=== PATIENT | male | born 1970 | race Caucasian/White ===

== ENCOUNTER 2022-06-27 11:33 | Emergency (ER) | payer OTHER ==
--- OUTSIDE RECORDS SUMMARY | 2022-06-27 11:36 | XMS REPORT | Continuity of Care Document ---
:1970 Author Organization [facility] t Address [address] [place] [address] Care Team Providers Name Role Phone PCP, PATIENT DOES NOT HAVE A Primary Care Physician Unavaila ble Nurse, [facility] Attending Clinician Unavailable Unknown, Attending Attending Clinician Unavailable TAMIKA THURSTON Attending Clinician Unavailable Doctor Unassigned, [place] Attending Clinician Unavailable Nurse, Brendon Pob Immunization Attending Clinician Unavailable Brandon Mckoy DO Attending Clinician BRANDON MCKOY Attending Clinician Unavailable Eugene Colbert MD Attending Clinician DEDE CASTAÑEDA Attending Clinician Unavailable JESSICA FRIAS Attending Clinician Unavailable JESSICA FRIAS Admitting Clinician Unavailable Payers Payer Name Policy Type Policy Number Effective Date Expiration Date Fernando vivar [employer]ET[employer] PPO I [id number] 2017 00:00:00 Problems Condition Condition Condition Status Onset Resolution Last Treating Co mments Source Name Details Category Date Date Treatment Clinician Date No known No known Disease Unive rs active active ity of problems problems [facility] Allergies, Adverse Reactions, Alerts Allergy Allergy Status Severity Reaction(s) Onset Inactive Treating Comm ents Source Name Type Date Date Clinician Penicill Propensi Active Anaphylaxis 2007-0 U nivers ins ty to 10-15 ity of adverse 00:00: [place] reaction 00 Medical s Branch Penicill Propensi Active Anaphylaxis U nivers ins ty to 10-15 ity of adverse 00:00: [place] reaction Medical s [place] PENICILL Drug Active Anaphylaxis 2007- Uni vers INS Class 10-15 ity of 00:00: [place] 00 Medical Branch Social History Social Habit Start Date Stop Date Quantity Comments Source History SDNV University o f Alcohol Frequency [place] M edical Branch History [facility] University o f Alcohol Std [place] Medical Drinks Branch History [facility] o f Alcohol Binge [place] Medic al Branch History of Current smoker University of tobacco use [facility] Alcohol intake 2019-05-13 2019-05-13 0 /d University of 00:00:00 00:00:00 [facility] Alcohol Comment 2019-04-16 2019-04-16 10/week (wine and Un iversity of 00:00:00 00:00:00 liquor) [facility] Tobacco use and 2016-03-29 2016-03-29 Smokeless tobacco Un iversity of exposure 00:00:00 00:00:00 non-user [facility] Sex Ass[birth year] At [birth year] Universit y of 00:00:00 00:00:00 [facility] Smoking Status Start Date Stop Date Source Ex-smoker 2016-03-29 00:00:00 2016-03-29 00:00:00 [facility] Medications Ordered Filled Start Stop Current Ordering Indication Dosage Frequency Signature Comments Components Source Medication Medication Date Date Medication? Clinician (SIG) Name Name diclofenac 2018-05 Yes 50mg Take 1 Unive rs 50 mg EC 2-19 tablet by ity of tablet 00:00: mouth 3 ([facility]) Medical times Branch daily with meals. diclofenac 2018-05 Yes 50mg Take 1 Unive rs 50 mg EC 2-19 tablet by ity of tablet 00:00: mouth (three) Medical times Branch daily with meals. diclofenac 2018-05 Yes 50mg Take 1 Unive rs 50 mg EC 2-19 tablet by ity of tablet 00:00: mouth 3 [place] (three) Medical times Branch daily with meals. diclofenac 2018-05 Yes 50mg Take 1 Unive rs 50 mg EC 2-19 tablet by ity of tablet 00:00: mouth 3 [place] (three) Medical times Branch daily with meals. ibuprofen 2018-05 Yes 600mg Take 600 Uni vers 200 mg 2-04 mg by ity of tablet 14:03: mouth [place] 39 every 6 Medical (six) Branch hours as needed. ibuprofen 2018-05 Yes 600mg Take 600 Uni vers 200 mg 2-04 mg by ity of tablet 14:03: mouth [place] 39 every 6 Medical (six) Branch hours as needed. ibuprofen 2018-05 Yes 600mg Take 600 Uni vers 200 mg 2-04 mg by ity of tablet 14:03: mouth [place] 39 every 6 Medical (six) Branch hours as needed. ibuprofen 2018-05 Yes 600mg Take 600 Uni vers 200 mg 2-04 mg by ity of tablet 14:03: mouth [place] 39 every 6 Medical (six) Branch hours as needed. fluticasone 2018-05 Yes [id number] 2{spray Use 2 Univers propionate 0-03 } Sprays in ity of 50 00:00: each [place] mcg/actuati 00 nostril Medic al on nasal daily. Branch spray fluticasone 2018-05 Yes [id number] 2{spray Use 2 Univers propionate 0-03 } Sprays in ity of 50 00:00: each [place] mcg/actuati 00 nostril Medic al on nasal daily. Branch spray fluticasone 2018-05 Yes [id number] 2{spray Use 2 Univers propionate 0-03 } Sprays in ity of 50 00:00: each [place] mcg/actuati 00 nostril Medic al on nasal daily. Branch spray fluticasone 2018-05 Yes [id number] 2{spray Use 2 Univers propionate 0-03 } Sprays in ity of 50 00:00: each [place] mcg/actuati 00 nostril Medic al on nasal daily. Branch spray Immunizations Ordered Filled Immunization Date Status Comments [facility] e Immunization Name Name SARS-COV-2 COVID-19 2021-05-19 Completed Unive rsity of MODERNA BOOSTER 00:00:00 [place] Med ical VACCINE Branch SARS-COV-2 COVID-19 2021-05-19 Completed Unive rsity of MODERNA 0.25ML 00:00:00 [place] Medi tamiko BOOSTER VACCINE Branch SARS-COV-2 COVID-19 2021-05-19 Completed Unive rsity of MODERNA 0.25ML 00:00:00 [place] Medi tamiko BOOSTER VACCINE Branch SARS-COV-2 COVID-19 2020-07-17 Completed Unive rsity of MODERNA VACCINE 00:00:00 [facility] ical Branch SARS-COV-2 COVID-19 2020-07-17 Completed Unive rsity of MODERNA VACCINE 00:00:00 [facility] ical Branch SARS-COV-2 COVID-19 2020-07-17 Completed Unive rsity of MODERNA 12+ YRS 00:00:00 [facility] VACCINE Branch SARS-COV-2 COVID-19 2020-07-17 Completed Unive rsity of MODERNA 12+ YRS 00:00:00 [facility] VACCINE Branch SARS-COV-2 COVID-19 2020-06-20 Completed Unive rsity of MODERNA VACCINE 00:00:00 [facility] Branch SARS-COV-2 COVID-19 2020-06-20 Completed Unive rsity of MODERNA VACCINE 00:00:00 [facility] Branch SARS-COV-2 COVID-19 2020-06-20 Completed Unive rsity of MODERNA 12+ YRS 00:00:00 [facility] VACCINE Branch SARS-COV-2 COVID-19 2020-06-20 Completed Unive rsity of MODERNA 12+ YRS 00:00:00 [facility] VACCINE Branch Influenza Virus 2019-04-16 Completed Universit y of Vaccine Quad .5 mL 00:00:00 [facility] IM 6+ MO Branch Influenza Virus 2019-04-16 Completed Universit y of Vaccine Quad .5 mL 00:00:00 [facility] IM 6+ MO Branch Influenza Virus 2019-04-16 Completed Universit y of Vaccine Quad .5 mL 00:00:00 [facility] 6+ MO Branch Influenza Virus 2019-04-16 Completed Universit y of Vaccine Quad .5 mL 00:00:00 [facility] 6+ MO Branch TDAP 2019-02-13 Completed University of 00:00:00 [facility] TDAP 2019-02-13 Completed University of 00:00:00 [facility] TDAP 2019-02-13 Completed University of 00:00:00 [facility] TDAP 2019-02-13 Completed University of 00:00:00 [facility] Influenza Virus 2016-03-29 Completed Universit y of Vaccine Quad IM 3+ 00:00:00 [facility] Influenza Virus 2016-03-29 Completed Universit y of Vaccine Quad IM 3+ 00:00:00 [facility] Influenza Virus 2016-03-29 Completed Universit y of Vaccine Quad IM 3+ 00:00:00 [facility] Influenza Virus 2016-03-29 Completed Universit y of Vaccine Quad IM 3+ 00:00:00 [facility] Vital Signs Vital Name Observation Time Observation Value Comments Source Systolic blood 2022-06-27 17:20:00 133 mm[Hg] Univer sity of pressure [facility] Diastolic blood 2022-06-27 17:20:00 98 mm[Hg] Unive rsity of pressure [facility] Heart rate 2022-06-27 17:10:00 101 /min [facility] Body temperature 2022-06-27 17:10:00 37.33 [facility] Respiratory rate 2022-06-27 17:10:00 18 /min [facility] Body weight 2022-06-27 17:10:00 92.987 kg [facility] BMI 2022-06-27 17:10:00 29.41 kg/m2 [facility] Oxygen saturation in 2022-06-27 17:10:00 98 /min [facility] Arterial blood by [facility] Pulse oximetry Branch Procedures Procedure Date / Time Performed Performing Clinician [facility] e CONSENT/REFUSAL FOR 2022-06-27 17:06:03 Doctor Unassigned, No [facility] [place] DIAGNOSIS AND Name [facility] TREATMENT SARS-COV-2 COVID-19 2021-05-19 20:49:31 Doctor Unassigned, No [facility] [place] VACCINE Name [facility] BOOSTER,0.25ML,IM (MODERNA) Encounters Start End Encounter Admission Attending Care Care Encounter Source Date/Time Date/Time Type Type Clinicians Facility Department ID 2022-06-27 2022-06-27 [facility] [id number] Univers 11:15:00 11:35:00 Visit Unknown, Attending HEALTH [id number] [facility] [id number] Rob as TYESHA?BLEA [phone] Il dical [address] MEDICAL OFFICE BUILDING 2022-06-27 2022-06-27 Outpatient Jamey THURSTON [facility] [id number] Univers 11:15:00 11:15:[address] [facility] 2022-06-27 2022-06-27 Orders Doctor JESSICA [id number] Univers 00:00:00 00:00:00 Only Unassigned, MARCIANO [id number] ity of [place] [facility] [id number] Rob as [phone] [address] 2021-05-19 2021-05-19 Imm/Inj Nurse, Adc Pob Immunization [facility] [id number] Univers 14:50:00 14:50:00 Visit Brandon Mckoy [id number] [facility] [id number] [place] [phone] Me dical NAL [address] [facility] 2021-05-19 2021-05-19 Outpatient R ADDIE [facility] [id number] Univers 14:50:00 14:45:23 BRANDON [facility] 2021-04-14 2021-04-14 [facility] [id number] Univers 00:00:00 00:00:00 Eugene CANTU [id number] ity [facility] [id number] [place] [id number] [place] dical NAL [address] [facility] 2020-07-18 2020-07-[address] [facility] [id number] Univers [facility] 2020[facility] 2020-07-17 Outpatient Jamey CASTAÑEDA [facility] [id number] Univers 16:15:00 16:15:[address] [facility] 2020-06-20 2020-06-20 Outpatient Jamey CASTAÑEDA [facility] [id number] Univers 11:50:00 11:50:[address] [facility] 2019-04-28 2019-04-28 Outpatient Jamey FRIAS [facility] [id number] Univers 08:39:14 08:35:00 JESSICA [facility] Results This patient has no known results.
[2022-06-27] MEDS ORDERED: ONDANSETRON 4 MG/2 ML VIAL ONE (12:48)
[2022-06-27] MEDS ORDERED: ACETAMINOPHEN 500 MG TAB ONE (12:48)
[2022-06-27 12:52] LABS: Absolute Lymphocytes (CBC) 0.7 K/uL (0.7-4.9); Lymphocytes % 8.7 % (15.3-44.8); MCV 90.9 fL (80-100); MPV 8.5 fL (7.6-11.3); RBC Red Blood Cell Count 5.06 M/uL (4.33-5.43)
[2022-06-27 13:08] LABS: Albumin 3.9 g/dL (3.4-5.0); Bilirubin Total 0.4 mg/dL (0.2-1.0); Potassium 4.1 mmol/L (3.5-5.1); Protein, Total 7.3 g/dL (6.4-8.2)
[2022-06-27 13:18] LABS: Urine Blood Negative (Negative); Urine Glucose Negative (Negative); Urine Protein Negative (Negative); Urine Specific Gravity >=1.030 (1.005-1.030); Urine pH 5.5 (5.0-7.0)
[2022-06-27 13:29] LABS: SARS-COV-2 RT PCR NEGATIVE (NEGATIVE)
--- NOTE | 2022-06-27 13:41 | RAD REPORT ---
EXAM DESCRIPTION: CTAbdomen Pelvis W Contrast - 06/27/2022 1:20 pm CLINICAL HISTORY: Abdominal pain. abdominal pain COMPARISON: CT ABD PELVIS W CONTRAST dated 10/06/2012 TECHNIQUE: Biphasic CT imaging of the abdomen and pelvis was performed with 100 ml non-ionic IV cont rast. All CT scans are performed using dose optimization technique as appropriate and may include automated exposure control or mA/KV adjustment according to patient size. FINDINGS: The lung bases are clear. The liver, spleen, pancreas, adrenal glands and kidneys are within normal limits. Parapelvic cysts ar e present bilaterally. Anterior hernia mesh. No bowel obstruction, free air, free fluid or abscess. The base of the appendix is thickened to 11 m m with mild surrounding inflammation. No evidence of significant lymphadenopathy. Small fat containi ng right inguinal hernia. No suspicious bony findings. IMPRESSION: Acute appendicitis
[2022-06-27] MEDS ORDERED: CIPROFLOXACIN 400mg IV 400 MG/200 ML BAG IV ONE (14:08)
[2022-06-27] MEDS ORDERED: METRONIDAZOLE 500mg IVPB 500 MG/100 ML BAG IV ONE (14:08)
[2022-06-27] MEDS ORDERED: DIPHENHYDRAMINE 50 MG/ML VIAL ONE (14:50)
[2022-06-27] MEDS ORDERED: FAMOTIDINE 20 MG/2 ML VIAL IV ONE (14:50)
--- NOTE | 2022-06-27 14:53 | ER ---
Nurse's Notes [facility] Name: Yemi Vicente Age: 51 yrs Sex: Male : 1970 Arrival Date: 06/27/2022 Time: 11:38 Bed 20 Private MD: Liang Vee Diagnosis: Unspecified acute appendicitis Presentation: 06/27 12:23 Chief complaint: Patient states: RLQ abdominal pain, Nausea, diarrhea, chills, x 3 jl7 days, denies symptoms, [facility] urgent care sent to ED for possible appendicitis. Coronavirus screen: Vaccine status: Patient reports receiving the 2nd dose of the covid vaccine. diarrhea, Client presents with at least one sign or symptom that may indicate coronavirus-19. Ebola Screen: No symptoms or risks identified at this time. Initial Sepsis Screen: Does the patient meet any 2 criteria? Temp <36.0*C (96.8*F)) or > 38.3*C (100.9*F). HR > 90 bpm. Yes Does the patient have a suspected source of infection? Yes: Acute abdominal pain. Risk Assessment: Do you want to hurt yourself or someone else? Patient reports no desire to harm self or others. Onset of symptoms was June 25, 2022. 12:23 Method Of Arrival: Ambulatory [facility] 12:23 Acuity: VERONIKA 2 jl7 Triage Assessment: 12:29 General: Appears in no apparent distress. uncomfortable, Behavior is calm, cooperative, jl7 appropriate for age. Pain: Complains of pain in right lower quadrant Pain currently is 4 out of 10 on a pain scale. at worst was 10 out of 10 on a pain scale. GI: Reports diarrhea, nausea. Historical: - Allergies: 12:29 PENICILLINS; jl7 - Home Meds: 12:29 None [Active]; jl7 - PMHx: 12:29 None; jl7 - PSHx: 12:29 hernia; jl7 - Immunization history:: Client reports receiving the 2nd dose of the Covid vaccine. - Social history:: Smoking status: Patient denies any tobacco usage or history of. Screenin:[address] [facility] ED Fall Risk Assessment (Adult) History of falling in the last 3 months, mb9 including since admission No falls in past 3 months (0 pts) Confusion or Disorientation No (0 pts) Intoxicated or Sedated No (0 pts) Impaired Gait No (0 pts) Mobility Assist Device Used No (0 pt) Altered Elimination No (0 pt) Score/Fall Risk Level 0 - 2 = Low Risk Oriented to surroundings, Maintained a safe environment, Educated pt \\T\\ family on fall prevention, incl call for assistance when getting out of bed. Abuse screen: Denies threats or abuse. Nutritional screening: No deficits noted. Tuberculosis screening: No symptoms or risk factors identified. Assessment: 14:03 Reassessment: pt brought back to ER room. mb9 14:17 General: Appears in no apparent distress. comfortable, Behavior is calm, cooperative, mb9 appropriate for age. Pain: Complains of pain in abdomen and right lower quadrant Pain does not radiate. Pain currently is 3 out of 10 on a pain scale. Quality of pain is described as aching, throbbing, Is continuous. Neuro: Rose Agitation-Sedation Scale (RASS): 0 - Alert and Calm Level of Consciousness is awake, alert, obeys commands, Oriented to person, place, time, situation, Appropriate for age. Cardiovascular: Heart tones S1 S2 present Capillary refill < 3 seconds is brisk Patient's skin is warm and dry. Rhythm is regular. Respiratory: Airway is patent Respiratory effort is even, unlabored, Respiratory pattern is regular, symmetrical, Breath sounds are clear bilaterally. GI: Abdomen is round non-distended, Bowel sounds present X 4 quads. Abd is soft Abdomen is tender to palpation in right lower quadrant Reports diarrhea, nausea. : No signs and/or symptoms were reported regarding the genitourinary system. EENT: No signs and/or symptoms were reported regarding the EENT system. Derm: Skin is pink, warm \\T\\ dry. Musculoskeletal: Range of motion: intact in all extremities. 14:45 Reassessment: Pt having allergic reaction to Cipro. Airway is patent, respirations mb9 clear and unlabored. Pt states "Its itchy and a rash is starting." Jonathan APPLE, notified. New orders at this time. 15:45 Reassessment: No changes from previously documented assessment. Patient and/or family mb9 updated on plan of care and expected duration. Pain level reassessed. Patient is alert, oriented x 3, equal unlabored respirations, skin warm/dry/pink. 15:47 Reassessment: report given to [facility]. mb9 Vital Signs: 12:23 BP 158 / 114; Pulse 105; Resp 15; Temp 102.8(O); Pulse Ox 97% on R/A; Weight 88.45 kg; jl7 Height 5 ft. 10 in. (177.80 cm); Pain 4/10; 13:42 Temp 100.5; ap3 14:15 BP 130 / 99; Pulse 88; Resp 18; Temp 99.6(O); Pulse Ox 96% on R/A; Pain 0/10; mb9 14:45 Pulse 78; Resp 18; Pulse Ox 98% on R/A; mb9 12:23 Body Mass Index 27.98 (88.45 kg, 177.80 cm) jl7 ED Course: 11:38 Patient arrived in ED. as 11:39 Liang Vee MD is Private Physician. as 12:05 Karthik Castillo PA is PHCP. [facility] 12:05 Kanu Rivera DO is Attending Physician. [facility] 12:29 Triage completed. jl7 12:29 Arm band placed on right wrist. jl7 12:38 Essence Pickering, LORENZO is Primary Nurse. ap3 12:42 Inserted saline lock: 20 gauge in left antecubital area, using aseptic technique. Blood ap3 collected. 14:15 COVID-19/FLU A+B Sent. mb9 14:18 No provider procedures requiring assistance completed. mb9 14:19 Placed in gown. Bed in low position. Call light in reach. Side rails up X 1. Client mb9 placed on continuous cardiac and pulse oximetry monitoring. NIBP monitoring applied. type bar and segment assembler on. Door closed. Noise minimized. Warm blanket given. 14:22 initiated transfer to [facility], pt denied due to hospital being on saturation,per rylee Us. initiated transfer to [facility]. 14:39 Inserted saline lock: 18 gauge in right forearm, using aseptic technique. mb9 Administered Medications: 14:51 Discontinued: Cipro (ciprofloxacin) 400 mg 200 ml IVPB once over 60 mins mb9 12:49 Drug: Zofran (Ondansetron) 4 mg Route: IVP; Site: left antecubital; ap3 12:49 Drug: Acetaminophen 1000 mg Route: PO; ap3 14:15 Drug: Flagyl (metroNIDAZOLE) 500 mg Volume: 100 ml; Route: IVPB; Rate: 200 ml/hr; mb9 Infused Over: 30 mins; Site: left antecubital; 14:51 Follow up: Response: No adverse reaction; IV Status: Completed infusion mb9 14:39 Drug: Cipro (ciprofloxacin) 400 mg Volume: 200 ml; Route: IVPB; Infused Over: 60 mins; mb9 Site: right forearm; 14:46 Drug: diphenhydrAMINE 25 mg Route: IVP; Site: right forearm; mb9 14:53 Drug: Pepcid (famotidine) 20 mg Route: IVP; Site: right forearm; mb9 Medication: 14:19 VIS not applicable for this client. mb9 Outcome: 14:53 ER care complete, transfer ordered by MD. tsang 15:48 Patient left the ED. mb9 Signatures: Mima Caraballo Joel, PA PA jmm Martinez, Amelia as Leal, Jahala, RN RN jl7 Essence Pickering RN RN ap3 Gina Springer RN RN mb9
--- NOTE | 2022-06-27 14:53 | EDPHYS ---
Physician Documentation [facility] Name: Yemi Vicente Age: 51 yrs Sex: Male : 1970 Arrival Date: 06/27/2022 Time: 11:38 Bed 20 Private MD: Liang Vee ED Physician Kanu Rivera HPI: 06/27 12:28 This 51 yrs old Male presents to ER via Ambulatory with complaints of Abdominal Pain. jmm 12:28 The patient presents with abdominal pain. Onset: The symptoms/episode began/occurred jmm gradually, 3 day(s) ago. Is a 51-year-old male with no chronic medical conditions or presents emerged part with complaints of right lower quadrant abdominal pain beginning approximately 3 days ago. Patient states that his pain intensified this morning. Also complains of nausea. Is having diarrhea as well. Denies any active vomiting. Patient has a surgical history of umbilical hernia repair.. Historical: - Allergies: 12:29 PENICILLINS; jl7 - Home Meds: 12:29 None [Active]; jl7 - PMHx: 12:29 None; jl7 - PSHx: 12:29 hernia; jl7 - Immunization history:: Client reports receiving the 2nd dose of the Covid vaccine. - Social history:: Smoking status: Patient denies any tobacco usage or history of. ROS: 12:28 Constitutional: Negative for fever, chills, and weight loss, Cardiovascular: Negative jmm for chest pain, palpitations, and edema, Respiratory: Negative for shortness of breath, cough, wheezing, and pleuritic chest pain. 12:28 Abdomen/GI: Positive for abdominal pain. 12:28 All other systems are negative. Exam: 12:28 Constitutional: This is a well developed, well nourished patient who is awake, alert, jmm and in no acute distress. Head/Face: atraumatic. Eyes: EOMI, no conjunctival erythema appreciated ENT: Moist Mucus Membranes Neck: Trachea midline, Supple Chest/axilla: Normal chest wall appearance and motion. Cardiovascular: Regular rate and rhythm. No edema appreciated Respiratory: Normal respirations, no respiratory distress appreciated 12:28 Back: Normal ROM Skin: General appearance color normal MS/ Extremity: Moves all extremities, no obvious deformities appreciated, no edema noted to the lower extremities Neuro: Awake and alert Psych: Behavior is normal, Mood is normal, Patient is cooperative and pleasant 12:28 Abdomen/GI: Inspection: abdomen appears normal, Bowel sounds: normal, Palpation: soft, moderate abdominal tenderness, in the right lower quadrant. Vital Signs: 12:23 BP 158 / 114; Pulse 105; Resp 15; Temp 102.8(O); Pulse Ox 97% on R/A; Weight 88.45 kg; jl7 Height 5 ft. 10 in. (177.80 cm); Pain 4/10; 13:42 Temp 100.5; ap3 14:15 BP 130 / 99; Pulse 88; Resp 18; Temp 99.6(O); Pulse Ox 96% on R/A; Pain 0/10; mb9 14:45 Pulse 78; Resp 18; Pulse Ox 98% on R/A; mb9 12:23 Body Mass Index 27.98 (88.45 kg, 177.80 cm) jl7 MDM: 12:43 Patient medically screened. [facility] 14:50 Data reviewed: vital signs, nurses notes. Consideration of Admission/Observation. [facility] Management of patient was discussed with the following: Dr. Gaitan. I considered the following discharge prescriptions or medication management in the emergency department Medications were administered in the Emergency Department. See MAR. 14:52 ED course: I discussed the patient with Dr. Gaitan. Dr. Gaitan then consulted with [facility] Dr. Rivera who stated that the OR is not available for emergent surgery. Recommended transfer. Dr. Gaitan then called Dr. Rivera again, stating that there may be an OR available at [facility].. 06/27 12:28 Order name: CBC with Diff [facility] 06/27 12:28 Order name: CMP [facility] 06/27 12:28 Order name: Lipase [facility] 06/27 12:30 Order name: COVID-19/FLU A+B [facility] 06/27 12:53 Order name: CBC with Automated Diff; Complete Time: 13:04 [facility] 06/27 13:08 Order name: Comprehensive Metabolic Panel; Complete Time: 13:16 [facility] 06/27 12:28 Order name: CT Abd/Pelvis - IV Contrast Only [facility] 06/27 13:08 Order name: Lipase; Complete Time: 13:16 [facility] 06/27 13:18 Order name: Urine Dipstick-Ancillary; Complete Time: 13:21 [facility] 06/27 13:30 Order name: COVID-19/FLU A+B; Complete Time: 13:31 [facility] 06/27 13:42 Order name: CT; Complete Time: 13:50 [facility] 06/27 12:28 Order name: IV Saline Lock; Complete Time: 12:41 [facility] 06/27 12:28 Order name: Labs collected and sent; Complete Time: 12:41 [facility] 06/27 12:28 Order name: Urine Dipstick-Ancillary (obtain specimen); Complete Time: 13:18 [facility] Administered Medications: 14:51 Discontinued: Cipro (ciprofloxacin) 400 mg 200 ml IVPB once over 60 mins mb9 12:49 Drug: Zofran (Ondansetron) 4 mg Route: IVP; Site: left antecubital; ap3 12:49 Drug: Acetaminophen 1000 mg Route: PO; ap3 14:15 Drug: Flagyl (metroNIDAZOLE) 500 mg Volume: 100 ml; Route: IVPB; Rate: 200 ml/hr; mb9 Infused Over: 30 mins; Site: left antecubital; 14:51 Follow up: Response: No adverse reaction; IV Status: Completed infusion mb9 14:39 Drug: Cipro (ciprofloxacin) 400 mg Volume: 200 ml; Route: IVPB; Infused Over: 60 mins; mb9 Site: right forearm; 14:46 Drug: diphenhydrAMINE 25 mg Route: IVP; Site: right forearm; mb9 14:53 Drug: Pepcid (famotidine) 20 mg Route: IVP; Site: right forearm; mb9 Disposition: 18:07 Co-signature as Attending Physician, Kanu Rivera DO I reviewed the patient's care ms3 provided by Advanced Practice Provider \T\ agree w/ the diagnosis \T\ care plan. I personally saw the pt \T\ performed a substantive portion of the visit, incldng all aspects of the (History/Exam/Medical Decision Making). 51-year-old male with abdominal pain. CT scan reveals uncomplicated appendicitis. Case discussed with Dr. Gaitan, on-call general surgeon and he will accept patient for surgery at [facility] as an OR time cannot be obtained in [facility]. Disposition Summary: 06/27/22 14:53 Transfer Ordered Transfer Location: Other Acute Care Facility [facility] Reason: Higher level of care jmm Condition: Stable jmm Problem: new jmm Symptoms: are unchanged jmm Accepting Physician: Dr. Gaitan(06/27/22 15:48) fito Diagnosis - Unspecified acute appendicitis jmm Forms: - Medication Reconciliation Form jmm - SBAR form jmm Signatures: Dispatcher [employer] Karthik Lockwood PA PA jmm Leal, Jahala RN RN jl7 Essence Pickering RN RN ap3 Kanu Rivera DO DO ms3 Gina Springer RN RN mb9 Corrections: (The following items were deleted from the chart) 15:48 14:53 Dr. Arnie tsang mb9
[2022-06-27 15:58] VITALS: BP 130/99; TEMP 99.6
[2022-06-27 15:59] VITALS: O2SAT 98
== END 2022-06-27 15:48 ==
LOC: ER 11:33
DX: K35.80 Unspecified acute appendicitis (principal); Z20.822 Contact with and (suspected) exposure to COVID-19; Z88.0 Allergy status to penicillin
CPT/HCPCS: 85025; 36415; 81003; 83690; 80053; 0240U; 74177; Q9967; J1200; J2405; J0744

== ENCOUNTER 2024-05-12 06:04 | Day surgery (SDC) | payer OTHER ==
[2024-05-12 06:44] LABS: Absolute Eosinophils 0.3 K/uL (0-0.5); Absolute Lymphocytes (CBC) 1.9 K/uL (0.7-4.9); Absolute Monocytes 0.7 K/uL (0.1-1.3); Basophils % 0.8 % (0-1.3); Eosinophils % 4.9 % (0-4.4); Hematocrit 43.6 % (39.6-49.0); Hemoglobin 14.5 g/dL (13.6-17.9); Lymphocytes % 31.9 % (15.3-44.8); MCH 30.8 pg (27.0-35.0); MCHC 33.2 g/dL (32.0-36.0); MCV 92.7 fL (80-100); MPV 9.7 fL (7.6-11.3); Monocytes % 11.3 % (3.3-12.3); Neutrophils % 51.1 % (41.7-73.7); Platelets 183 thou/uL (152-406); Red Cell Distribution Width 13.7 % (12.1-15.2)
[2024-05-12] MEDS: Ringers Lactate 1,000 ML IV ONE (06:50)
[2024-05-12 06:55] LABS: Anion Gap 8.2 mEq/L (5.0-15.0); Potassium 4.2 mEq/L (3.5-5.1)
[2024-05-12] MEDS ORDERED: propofoL 200 MG/20 ML VIAL IV ONE (07:35)
[2024-05-12] MEDS ORDERED: MIDAZOLAM HCL 2 MG/2 ML INJ ONE (07:35)
[2024-05-12] MEDS ORDERED: ROCURONIUM 50 MG/5 ML VIAL IV ONE (07:35)
[2024-05-12] MEDS ORDERED: LIDOCAINE 2% MPF 5 ML VIAL ONE (07:35)
[2024-05-12] MEDS ORDERED: FENTANYL CITR 100 MCG/2 ML ONE ×2 (07:35→09:04)
[2024-05-12] MEDS ORDERED: SUCCINYLCHOLINE 20 MG/ML (10 ML) IV ONE (08:23)
[2024-05-12] MEDS ORDERED: SUGAMMADEX SODIUM 200 MG/2 ML VIAL IV ONE (08:23)
[2024-05-12] MEDS: CEFAZOLIN SODIUM 1 GM/VIAL ONE (08:49)
[2024-05-12] MEDS ORDERED: EPHEDRINE SULF 50 MG/ML VIAL ONE (08:53)
[2024-05-12] MEDS ORDERED: ONDANSETRON 4 MG/2 ML VIAL ONE (09:05)
[2024-05-12] MEDS ORDERED: dexAMETHasone 4 MG/ML VIAL ONE (09:05)
[2024-05-12] MEDS ORDERED: KETOROLAC 30 MG/ML INJ ONE (09:06)
[2024-05-12] MEDS ORDERED: NEOSTIGMINE 1 MG/ML -10 ML VIAL ONE (09:21)
[2024-05-12] MEDS ORDERED: GLYCOPYRROLATE 0.2 MG/ML SYR ONE (09:21)
[2024-05-12] MEDS ORDERED: Mastisol Adhesive Liq ONE (09:22)
[2024-05-12] MEDS ORDERED: CODEINE 30MG/APAP 300MG TAB ONE (11:30)
[2024-05-12] MEDS: CODEINE 30MG/APAP 300MG TAB PO ONE (11:33)
[2024-05-12 13:11] VITALS: BP 133/95; TEMP 97.3
[2024-05-12 13:14] VITALS: O2SAT 100
--- NOTE | 2024-05-12 16:38 | OP ---
Date of Procedure: 05/12/2024 Surgeon: Gavin Giatan MD [employer] Hand: Devorah Munosn CRNA Preoperative Diagnosis: Incarcerated recurrent ventral tender hernia. Postoperative Diagnosis: Incarcerated recurrent ventral tender hernia plus intraabdominal adhesions. Procedures: 1.Laparoscopic repair of incarcerated recurrent ventral hernia with mesh about 5 cm. 2.Laparoscopic lysis of adhesions. Estimated Blood Loss: Less than 20 cc. Specimen: Hernia sac. Findings: The hernia starting just cephalad right at the edge with the previous hernia repair. The patient has a previous hernia repair with mesh placement done in another institution. The hernia sta rted right at the edge of that and continued in more cephalad. We were able to repair the fascia dipak elicia and also overlapped a mesh in that region. Anesthesia: General plus local. Implants: A large Ventralex mesh. Indication: This is the case of a male, who came to us with a tender ventral incisional hernia. The patient has previous surgery done. He is not sure what surgery was done. He is not even sure if he had a mesh, although he suspects he does. I cannot get the report from his previous surgery, but th e hernia is obviously there. The benefits, alternatives, and risks of laparoscopic repair of an inca rcerated recurrent ventral hernia with possible mesh fully explained, which include, but not limited to, infection, bleeding, damage to adjacent structures, anesthesia complications, recurrence, SC, and even . He also understands this may not relieve any symptoms. He might need more than one jaylyn gical intervention. He understood, signed a consent. Description Of Procedure: The area of concern was marked by me and the patient in the holding room. The patient was brought to the operating room, placed in supine position. Anesthesia was induced wi thout complication. The abdomen was prepped and draped in sterile fashion. A time-out was called. Then, after that, I proceeded to find an area in the infraumbilical region where we can place the tro car and incision was carried down to fascia, which was opened under direct vision. Peritoneum was en countered, opened under direct vision. Vicryl #1 placed inside the fascia. Amrik trocar was carefu lly introduced. Pneumoperitoneum was obtained. With this, we were able to assess the situation. We had multiple adhesions in the midline. We cannot see the defects, at this moment. So, I placed 5 m m trocars in the left and right of the abdomen and through those trocars, we were able to assess the issue and we proceeded then to do lysis of adhesions, without that, we cannot proceed. We took the a dhesions down without any enterotomies or bleeding with the help of LigaSure. Once we cleaned that a mae, we noticed the previous mesh and we noticed cephalad to that, there was a defect present right w here the mesh ends. We proceeded to remove the adhesions from the area, make a small incision in the skin on top and find the fascial edges and 2 [id number] fashion multiple stitches to approximat e it, but through that area, we also sent a Ventralex mesh, large, inside and this well overlapped de fects by 3-5 cm and overlapped the area of the previous mesh, showed no defects in between. The stra p was pulled and the mesh was secured in place with SorbaFix. After that, the straps were removed. The [id number] stitches were closed and the area was sealed to air and then we further intraperi toneally continued the fixation circumferentially to diminish any chance of any intestines coming in between. At that moment, we also have to mention that in order for us to do that, we have to mobiliz e part of the falciform ligament. We looked at the area of the falciform ligament, no bleeding, and in the area of the lysis of adhesions, no bleeding, intestines with no enterotomies. At that moment, I proceeded to remove the trocars under direct vision, deflated pneumoperitoneum. Closed the fascia where we had a previous Amrik trocar with Vicryl #1. Irrigated subcutaneous tissue, closed that wi th 3-0 chromic and the skin in a subcuticular fashion. Sponge counts and instrument counts correct. Patient tolerated the procedure well. Patient was sent to Recovery in stable condit ion. HM/MODL Voice ID: [id number] Report ID: [id number]
--- NOTE | 2024-05-12 16:41 | DS ---
Date of Discharge: 05/12/2024 Diagnosis: Incarcerated recurrent ventral hernia. Procedures: Laparoscopic repair of incarcerated recurrent ventral hernia with mesh, and laparoscopic lysis of adhesions. Disposition: Home. Activity: As tolerated. No heavy lifting. Discharge Instructions: Follow up in my office in 1 week. Call for appointment at [phone]. Keep a mae dry for 48 hours, then may shower. Abdominal binder while he is not out of bed. Medications justus e called to his pharmacy. JACQUES/MEERA Voice ID: [id number] Report ID: [id number]
== END 2024-05-12 12:30 | disposition home or self-care (01) ==
LOC: OR 06:04
PROVIDERS: ATTEND Surgery
PROC: 0DNW4ZZ Release Peritoneum, Percutaneous Endoscopic Approach (ICD-10-PCS; 2024-05-12)
PROC: 0WUF4JZ Supplement Abdominal Wall with Synthetic Substitute, Percutaneous Endoscopic Approach (ICD-10-PCS; principal; 2024-05-12 08:30)
DX: K43.6 Other and unspecified ventral hernia with obstruction, without gangrene (principal); K66.0 Peritoneal adhesions (postprocedural) (postinfection)
CPT/HCPCS: 85025; 80048; 36415; 82947; 88302; 49616; 49329; J2704; J1100; J2710; J2003; J2250; J3010 ×2; J2405; J7120; J0690